=== PATIENT | male | born 1990 | race Caucasian/White ===

== ENCOUNTER 2020-07-13 10:49 | Emergency (ER) | payer OTHER ==
[2020-07-13 11:45] VITALS: BP 131/73; PULSE 65; RESP 16; TEMP 97.3
--- NOTE | 2020-07-13 12:37 | XR ---
EXAMINATION TYPE: XR lumbar spine 2 or 3V DATE OF EXAM: 07/13/2020 CLINICAL HISTORY: Pain after injury. TECHNIQUE: Frontal and lateral images of the lumbar spine are obtained. COMPARISON: None FINDINGS: There are 5 lumbar type vertebral bodies identified. The lumbar spine shows straightened alignment without evidence of acute fracture or dislocation. Vertebral body heights and disk space he ights are within normal limits. The overlying soft tissue appears unremarkable. IMPRESSION: No acute fracture or dislocation is seen in the lumbar spine.
[2020-07-13] MEDS ORDERED: CYCLOBENZAPRINE 10 MG TAB PO STA (13:22)
[2020-07-13] MEDS ORDERED: HYDROmorphone 1 MG/ML 1 ML SYRINGE IM STA (13:22)
[2020-07-13] MEDS ORDERED: IBUPROFEN 800 MG TAB PO STA (13:23)
[2020-07-13] MEDS ORDERED: ACET/COD 300 MG/30 MG STARTER PACK 6 TAB BTL PO STA (13:25)
--- NOTE | 2020-07-13 13:26 | ED ---
Back Pain HPI - General Chief Complaint: Back Pain/Injury Stated Complaint: back injury Time Seen by Provider: 07/13/20 13:07 Source: patient, RN notes reviewed Limitations: no limitations - History of Present Illness Initial Comments: This a 30-year-old male presents emergency Department chief complaint low back pain. Patient states she days ago is moving some furniture with a friend states he twisted and felt some pain. Patient is is mildly laid around all day yesterday the pain worsened as he states he feels very stiff. Denies any bowel, bladder incontinence or retention or saddle anesthesias no lower shunted paresthesias. He occasionally has some pain and rates on his left leg. Patient states that back problems in the past. No abdominal complaints. - Related Data Previous Rx's Medication Instructions Recorded Cyclobenzaprine [Flexeril] 10 mg PO TID PRN #15 tab 07/13/20 Ibuprofen [Motrin] 600 mg PO Q8HR PRN #20 tab 07/13/20 predniSONE 50 mg PO DAILY #5 tab 07/13/20 Allergies Allergy/AdvReac Type Severity Reaction Status Date / Time No Known Allergies Allergy Verified 07/13/20 11:41 Review of Systems ROS Statement: Those systems with pertinent positive or pertinent negative responses have been documented in the HPI. ROS Other: All systems not noted in ROS Statement are negative. Past Medical History Past Medical History: No Reported History History of Any Multi-Drug Resistant Organisms: None Reported Additional Past Surgical History / Comment(s): lip surgery Past Psychological History: No Psychological Hx Reported Smoking Status: Current every day smoker Past Alcohol Use History: Occasional Past Drug Use History: None Reported General Exam Limitations: no limitations General appearance: alert, in no apparent distress Head exam: Present: atraumatic, normocephalic, normal inspection Eye exam: Present: normal appearance, PERRL, EOMI. Absent: scleral icterus, conjunctival injection, periorbital swelling ENT exam: Present: normal exam, mucous membranes moist Neck exam: Present: normal inspection, full ROM. Absent: tenderness, meningismus, lymphadenopathy Respiratory exam: Present: normal lung sounds bilaterally. Absent: respiratory distress, wheezes, rales, rhonchi, stridor Cardiovascular Exam: Present: regular rate, normal rhythm, normal heart sounds. Absent: systolic murmur, diastolic murmur, rubs, gallop, clicks GI/Abdominal exam: Present: soft, normal bowel sounds. Absent: distended, tenderness, guarding, rebound, rigid Extremities exam: Present: other (Lower extremity strength equal bilaterally neurovascular intact) Back exam: Present: tenderness (Left lower lumbar paraspinal), muscle spasm, paraspinal tenderness. Absent: full ROM (Patient reports to which pain to perform full range of motion), CVA tenderness (R), CVA tenderness (L), vertebral tenderness Neurological exam: Present: alert, reflexes normal. Absent: motor sensory deficit Course Vital Signs 07/13/20 11:41 Temperature 97.3 F L Pulse Rate 65 Respiratory 16 Rate Blood Pressure 131/73 O2 Sat by Pulse 100 Oximetry Medical Decision Making - Medical Decision Making Patient's symptoms are consistent with lumbar strain. Patient Sunday pain control, patient's course of steroids with close follow-up and return parameters were discussed. Disposition Clinical Impression: Strain of lumbar region Disposition: HOME SELF-CARE Condition: Stable Instructions (If sedation given, give patient instructions): Acute Low Back Pain (ED) Additional Instructions: Please return to the Emergency Department if symptoms worsen or any other concerns. Prescriptions: Cyclobenzaprine [Flexeril] 10 mg PO TID PRN #15 tab PRN Reason: Muscle Spasm Ibuprofen [Motrin] 600 mg PO Q8HR PRN #20 tab PRN Reason: Pain predniSONE 50 mg PO DAILY #5 tab Is patient prescribed a controlled substance at d/c from ED?: No Referrals: None,Stated [Primary Care Provider] - 1-2 days Pippa Wiley DO [Doctor of Osteopathic Medicine] - 1-2 days Time of Disposition: 13:26
== END 2020-07-13 13:46 | disposition home or self-care (01) ==
LOC: EC 10:49
DX: S39.012A Strain of muscle, fascia and tendon of lower back, initial encounter (principal); F17.200 Nicotine dependence, unspecified, uncomplicated; X50.1XXA Overexertion from prolonged static or awkward postures, initial encounter
CPT/HCPCS: 72100; 99283; 96372; J1170

== ENCOUNTER 2023-09-16 22:31 | Emergency (ER) | payer OTHER ==
[2023-09-16 22:58] VITALS: TEMP 98.3
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
[2023-09-17] MEDS: HYDROmorphone 1 MG/ML 1 ML SYRINGE IM STA (01:21)
[2023-09-17] MEDS: DIPH,PERTUS(ACELL)TETVAC-LF 0.5 ML VIAL IM ONE (01:24)
[2023-09-17] MEDS: HYDROmorphone 1 MG/ML 1 ML SYRINGE IVP STA (01:24)
[2023-09-17] MEDS: ceFAZolin 1,000 MG VIAL (IM USE) IM STA (01:29)
--- NOTE | 2023-09-17 01:46 | XR ---
EXAM: XR Right Hand Complete, 3 or More Views CLINICAL HISTORY: ITS.REASON XR Reason: Injury TECHNIQUE: Frontal, lateral and oblique views of the right hand. COMPARISON: No relevant prior studies available. FINDINGS: Bones/joints: Displaced, comminuted fracture of the fifth metacarpal neck. No dislocation. Soft tissues: Unremarkable. No radiopaque foreign body. IMPRESSION: Displaced, comminuted fracture of the fifth metacarpal neck.
[2023-09-17] MEDS: ACET/COD 300 MG/30 MG STARTER PACK 6 TAB BTL PO STA (02:22)
[2023-09-17 02:27] VITALS: BP 128/74; PULSE 79; RESP 16
== END 2023-09-17 02:27 | disposition home or self-care (01) ==
LOC: EC 22:31
DX: S62.306A Unspecified fracture of fifth metacarpal bone, right hand, initial encounter for closed fracture (principal); F17.200 Nicotine dependence, unspecified, uncomplicated; Z23 Encounter for immunization; W22.09XA Striking against other stationary object, initial encounter
CPT/HCPCS: 29125; 90471; 90715; 96372; 99283

== ENCOUNTER 2024-03-16 22:59 | Emergency (ER) | payer OTHER ==
[2024-03-16 23:08] VITALS: RESP 18; TEMP 97.6
[2024-03-16] MEDS: HYDROmorphone 1 MG/ML 1 ML SYRINGE IM STA (23:24)
[2024-03-16] MEDS: LIDOCAINE 4% PATCH TOPICAL ONE (23:25)
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
[2024-03-17] MEDS: ORPHENADRINE 30 MG/ML 2 ML VIAL IM STA (01:50)
[2024-03-17 02:10] LABS: Amorphous Sediment,Urine Rare /hpf; Appearance,Urine Turbid (Clear); Bacteria,Urine Rare /hpf; Bilirubin,Urine Negative (Negative); Blood,Urine Negative (Negative); Color,Urine Yellow; Glucose,Urine (UA) Negative (Negative); Ketones,Urine Negative (Negative); Leukocyte Esterase,Urine Negative (Negative); Mucus,Urine Many /hpf; Nitrite,Urine Negative (Negative); PH, Urine 6.5 (5.0-8.0); Protein,Urine 1+ (Negative); RBC,Urine 2 /hpf (0-5); Specific Gravity,Urine 1.038 (1.001-1.035); WBC,Urine 2 /hpf (0-5)
--- NOTE | 2024-03-17 02:37 | XR ---
EXAM: XR Lumbosacral Spine, 2 or 3 Views CLINICAL HISTORY: ITS.REASON XR Reason: back pain TECHNIQUE: Frontal and lateral views of the lumbar spine and sacrum. COMPARISON: No relevant prior studies available. FINDINGS: Vertebrae: No acute fracture. Dextroscoliosis from Disc spaces: Mild disc height loss at L4-5 and L5-S1. Soft tissues: Unremarkable. IMPRESSION: No acute findings.
[2024-03-17 03:09] VITALS: BP 134/63; PULSE 60
== END 2024-03-17 02:50 | disposition home or self-care (01) ==
LOC: EC 22:59
DX: M54.16 Radiculopathy, lumbar region (principal); F17.200 Nicotine dependence, unspecified, uncomplicated
CPT/HCPCS: 72100; 99284; 96372 ×2; J1171; 81001

== ENCOUNTER 2024-06-06 09:28 | Emergency (ER) | payer OTHER ==
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
[2024-06-06 12:22] VITALS: BP 132/77; PULSE 99; RESP 18; TEMP 97.8
== END 2024-06-06 12:55 | disposition left against medical advice (07) ==
LOC: EC 09:28
DX: S92.352A Displaced fracture of fifth metatarsal bone, left foot, initial encounter for closed fracture (principal); Z87.891 Personal history of nicotine dependence; W22.8XXA Striking against or struck by other objects, initial encounter
CPT/HCPCS: 99283